=== PATIENT | male | born 1990 | race Caucasian/White ===

== ENCOUNTER 2022-09-03 17:55 | Emergency (ER) | payer SELFPAY ==
[~2022-09-03] VITALS: Ht 180.3 cm; Wt 90.9 kg
[2022-09-03] MEDS ORDERED: NAPROXEN500 MG PO (19:53)
[2022-09-03] MEDS ORDERED: PENICILLN VK500 MG PO (19:53)
[2022-09-03] MEDS ORDERED: TRAMADOL HYDROC50 M1 PO (19:53)
[2022-09-03 20:00] VITALS: BP 105/73
== END 2022-09-03 20:07 | disposition home or self-care (01) | DRG 159 ==
LOC: ED 17:55
DX: K04.7 Periapical abscess without sinus (principal)